=== PATIENT | male | born 1970 | race Caucasian/White ===

== ENCOUNTER 2022-11-11 23:29 | Emergency (ER) | payer BC ==
[~2022-11-11] VITALS: Ht 180.3 cm; Wt 136.1 kg
--- NOTE | 2022-11-11 23:59 | ED Integumentary General ---
General Stated Complaint: LEFT MIDDLE FINGER INFECTION Source: patient Exam Limitations: no limitations History of Present Illness Date Seen by Provider: Nov 11, 2022 Time Seen by Provider: 23:48 Timing/Duration: this morning Severity: severe ("9") Location: hands (left middle finger) Associated Symptoms: edema, fever Allergies and Home Medications Allergies Coded Allergies: No Known Drug Allergies (Unverified , 11/12/22) Patient Home Medication List Home Medication List Reviewed: Yes Review of Systems Review of Systems Constitutional: see HPI Respiratory: no symptoms reported Cardiovascular: no symptoms reported Skin: other (redness and swelling tip of left middle finger) Physical Exam Vital Signs Vital Signs - First Documented 11/11/22 23:45 Temp 36.6 Pulse 101 Resp 20 B/P (MAP) 140/113 (122) Pulse Ox 97 O2 Delivery Room Air Capillary Refill : General Appearance: WD/WN, no apparent distress HEENT: PERRL/EOMI Cardiovascular: regular rate, rhythm Respiratory: no respiratory distress, no accessory muscle use Extremities: other (left middle finger, distal phalanx) Procedures/Interventions Progress digital block with 3ml 1% plain lidocaine left 3rd finger Progress/Results/Core Measures Results/Orders Vital Signs/I&O 11/11/22 23:45 Temp 36.6 Pulse 101 Resp 20 B/P (MAP) 140/113 (122) Pulse Ox 97 O2 Delivery Room Air Progress Progress Note : Time: 00:17 Progress Note Patient seen and evaluated, 52-year-old male presents with left middle finger swelling redness and pain. Evaluation today includes a physical exam. Differential diagnosis paronychia/felon. Based on physical exam and the amount of swelling over the entirety of the distal phalanx of the left finger I feel like a felon is more probable. Patient is declining at this point incision and drainage. I talked to him as the symptoms have just been going on less than 24 hours repeated warm soaks, aggressive antibiotics elevation and pain control. I advised him if within the next 24 to 48 hours he does not see significant improvement this will need to be opened and drained. He is not a diabetic. He does not smoke. I feel like he is reliable for follow-up. We will give him a shot of Rocephin here in the department. I am going to do a digital block to help with pain relief and give him some hydrocodone for home. We will put him on Keflex 4 times a day for total of 10 days. Return precautions provided. All questions are sought and answered. Departure Impression Primary Impression: Shireen Disposition: 01 HOME, SELF-CARE Condition: Stable Departure-Patient Inst. Decision time for Depature: 00:19 Referrals: NEIL FUENTES MD (PCP/Family) Primary Care Physician Patient Instructions: Cellulitis (Skin Infection), Adult ED Add. Discharge Instructions: You need to be aggressive with warm soaks of the finger 3-4 times a day. Take your antibiotics as directed 4 times a day, starting tomorrow, until they are gone. Keep the hand elevated to reduce swelling and pain. Hydrocodone every 6 hours with additional 500mg tylenol as needed for pain. You can also take over the counter ibuprofen 3 tablets (600mg) every 6 hours as needed for pain with food. Hydrocodone can cause constipation, you should take stool softeners while on t his medication. If, after 24-36 hours the swelling, redness and pain are getting worse, the fingertip will need to be opened up and drained. Please return to the ER to have this re-evaluated. Scripts Hydrocodone/Acetaminophen (Hydrocodone-Acetamin 5-325 mg) 5 Mg-325 Mg Tablet 1 TAB PO Q6H PRN for PAIN-MODERATE (5-7), #10 TAB Prov: JEN ANDREWS MD 11/12/22 Cephalexin (Cephalexin) 500 Mg Tablet 500 MG PO QID for 10 Days, #40 TAB Prov: JEN ANDREWS MD 11/12/22 JEN ANDREWS MD Nov 11, 2022 23:59
[2022-11-12] MEDS ORDERED: LIDOCAINE 1% INJ 20 ML VIAL INJ ONE ×2 (00:15→00:30)
[2022-11-12] MEDS ORDERED: cefTRIAXone 1 GM PRE-MIX 50 ML IV ONE (00:15)
[2022-11-12] MEDS ORDERED: ACHD5005 PO (00:24)
[2022-11-12] MEDS ORDERED: CEPH500T PO (00:24)
[2022-11-12] MEDS ORDERED: cefTRIAXone 1,000 MG VIAL IM ONE (00:30)
[2022-11-12 01:09] VITALS: BP 138/99
== END 2022-11-12 01:09 | disposition home or self-care (01) ==
LOC: EDUNIT# 23:29 → ER 23:35
DX: L03.012 Cellulitis of left finger (principal)
CPT/HCPCS: 64450